=== PATIENT | male | born 1990 | race Caucasian/White ===

== ENCOUNTER 2020-10-29 22:06 | Emergency (ER) | payer OTHER ==
[2020-10-29] MEDS ORDERED: NAPROSYN500 MG PO (23:30)
== END 2020-10-30 00:20 | disposition home or self-care (01) ==
LOC: ER1 22:06
DX: S63.284A Dislocation of proximal interphalangeal joint of right ring finger, initial encounter (principal); F17.200 Nicotine dependence, unspecified, uncomplicated; X58.XXXA Exposure to other specified factors, initial encounter
CPT/HCPCS: 26770; 73130; 99283